=== PATIENT | female | born 1975 | race Caucasian/White ===

== ENCOUNTER 2022-01-24 19:08 | Emergency (ER) | payer OTHER ==
[2022-01-24] VITALS (9 sets, daily range): BP systolic 109–155; BP diastolic 63–105
[2022-01-24 21:01] LABS: HEMATOCRIT 42.4 % (37.0-47.0); HEMOGLOBIN 14.4 g/dl (12.0-16.0); IMMATURE GRANULOCYTES 0.4 % (0.0-5.0); MEAN CORPUSCULAR HGB 29.9 pG CALC (26.0-32.0); NEUT# 5.49 thou/uL (2.00-7.15); RED BLOOD COUNT 4.82 mill/uL (4.20-5.60); RED CELL DISTRI WIDTH 12.9 % (11.5-15.5)
[2022-01-24 21:18] LABS: ALBUMIN 4.4 g/dL (3.2-5.0); ALKALINE PHOSPHATASE 102 u/l (38-126); ANION GAP 14 (6-22 (CALC)); BILIRUBIN, TOTAL 0.7 mg/dL (0.0-1.4); BUN 13 mg/dL (7-17); BUN/CREATININE RATIO 20 (12-20 (CALC)); CARBON DIOXIDE 24 mmol/l (22-30); CHLORIDE 105 mmol/l (95-108); CPK 64 u/l (30-165); CREATININE 0.7 mg/dL (0.5-1.0); GFR > 60 ML/MIN (>=60 (CALC)); GFR FOR AFR.AMER. > 60 ML/MIN (>=60 (CALC)); POTASSIUM 3.5 mmol/l (3.5-5.1); SGOT/AST 32 u/l (14-36); SODIUM 139 mmol/l (137-146); TOTAL PROTEIN 7.5 g/dL (6.3-8.2)
[2022-01-24 22:44] LABS: URINE BILIRUBIN - DIPSTICK NEGATIVE (NEGATIVE); URINE BLOOD DIPSTICK LARGE (NEGATIVE); URINE COLOR YELLOW; URINE GLUCOSE - DIPSTICK NEGATIVE (NEGATIVE); URINE KETONE 40 mg/dL (NEGATIVE); URINE LEUK ESTERASE NEGATIVE (NEGATIVE); URINE PROTEIN - DIPSTICK NEGATIVE (NEG-TRACE); URINE UROBILINOGEN - DIPSTICK 0.2 E.U./dL (0.2)
[2022-01-24 22:49] LABS: URINE NITRITE - DIPSTICK POSITIVE (Negative)
[2022-01-24 22:53] LABS: URINE BACTERIA FEW hpf; URINE SQUAMOUS EPITHELIAL CELL FEW EPI/hpf (0-FEW)
[2022-01-24] MEDS ORDERED: PAXLOVID PO (23:03)
[2022-01-24] MEDS ORDERED: PHENERGAN25 MG RE (23:20)
== END 2022-01-24 23:29 | disposition home or self-care (01) | DRG 179 ==
LOC: ED 19:08
PROVIDERS: Family Medicine
DX: U07.1 COVID-19 (principal); R50.9 Fever, unspecified; R05.9 Cough, unspecified; R09.89 Other specified symptoms and signs involving the circulatory and respiratory systems; R52 Pain, unspecified; R82.71 Bacteriuria

== ENCOUNTER 2023-09-06 09:09 | Emergency (ER) | payer OTHER ==
[~2023-09-06] VITALS: Ht 165.1 cm; Wt 81.6 kg
[~2023-09-06 09:09] MED LIST: PAXLOVID PO; PHENERGAN25 MG RE
[2023-09-06 09:54] LABS: BASO% 0.2 % (0-3); EOS% 0.2 % (0-8); HEMATOCRIT 46.8 % (37.0-47.0); HEMOGLOBIN 15.9 g/dl (12.0-16.0); IMMATURE GRANULOCYTES 0.1 % (0.0-5.0); LYMPH% 25.6 % (15-41); MEAN CORPUSCULAR HGB 30.2 pG CALC (26.0-32.0); MONO% 7.9 % (2-13); NEUT# 7.81 thou/uL (2.00-7.15); RED BLOOD COUNT 5.26 mill/uL (4.20-5.60); RED CELL DISTRI WIDTH 15.2 % (11.5-15.5)
[2023-09-06 10:05] LABS: ALBUMIN 4.7 g/dL (3.2-5.0); ALKALINE PHOSPHATASE 139 u/l (38-126); ANION GAP 24 (6-22 (CALC)); BILIRUBIN, TOTAL 1.3 mg/dL (0.02-1.3); BUN 4 mg/dL (7-17); BUN/CREATININE RATIO 7 (12-20 (CALC)); CARBON DIOXIDE 22 mmol/l (22-30); CHLORIDE 102 mmol/l (95-108); CREATININE 0.6 mg/dL (0.5-1.0); GFR FOR AFR.AMER. > 60 ML/MIN (>=60 (CALC)); GFR OTHER RACES > 60 ML/MIN (>=60 (CALC)); POTASSIUM 4.3 mmol/l (3.5-5.1); SGOT/AST 35 u/l (14-36); SODIUM 144 mmol/l (137-146); TOTAL PROTEIN 7.2 g/dL (6.3-8.2)
[2023-09-06] MEDS ORDERED: PHENERGAN25 MG RE (12:06)
[2023-09-06 12:30] VITALS: BP 114/62
[2023-09-06 12:45] VITALS: BP 112/59
[2023-09-06 13:00] VITALS: BP 115/65
[2023-09-06 13:16] VITALS: BP 105/60
[2023-09-06 13:20] VITALS: BP 105/60
== END 2023-09-06 13:29 | disposition home or self-care (01) | DRG 153 ==
LOC: ED 09:09
PROVIDERS: Family Medicine
DX: J06.9 Acute upper respiratory infection, unspecified (principal); E86.0 Dehydration; E66.9 Obesity, unspecified; Z98.84 Bariatric surgery status; Z20.822 Contact with and (suspected) exposure to COVID-19
CPT/HCPCS: J0131

== ENCOUNTER 2023-10-05 14:39 | Emergency (ER) | payer OTHER ==
[~2023-10-05] VITALS: Ht 165.1 cm; Wt 73.0 kg
[2023-10-05] VITALS (9 sets, daily range): BP systolic 91–123; BP diastolic 51–81
[2023-10-05 15:58] LABS: BASO% 0.3 % (0-3); EOS% 0.3 % (0-8); HEMATOCRIT 50.6 % (37.0-47.0); IMMATURE GRANULOCYTES 0.1 % (0.0-5.0); LYMPH% 30.2 % (15-41); MEAN CORPUSCULAR HGB 29.4 pG CALC (26.0-32.0); MEAN CORPUSCULAR HGB CONC 35.4 g/dL CAL (32.0-36.0); MONO% 8.6 % (2-13); NEUT# 4.14 thou/uL (2.00-7.15); NEUT% 60.5 % (42-76); RED BLOOD COUNT 6.08 mill/uL (4.20-5.60); RED CELL DISTRI WIDTH 16.1 % (11.5-15.5)
[2023-10-05 16:10] LABS: HEMOGLOBIN 17.9 g/dl (12.0-16.0); MEAN CELL VOLUME 83.2 fL CALC (80.0-100.0)
[2023-10-05 16:13] LABS: ALBUMIN 4.8 g/dL (3.2-5.0); ALKALINE PHOSPHATASE 119 u/l (38-126); BILIRUBIN, TOTAL 1.6 mg/dL (0.02-1.3); BUN 4 mg/dL (7-17); BUN/CREATININE RATIO 6 (12-20 (CALC)); CARBON DIOXIDE 19 mmol/l (22-30); CHLORIDE 99 mmol/l (95-108); CREATININE 0.6 mg/dL (0.5-1.0); GFR FOR AFR.AMER. > 60 ML/MIN (>=60 (CALC)); GFR OTHER RACES > 60 ML/MIN (>=60 (CALC)); MAGNESIUM 1.8 mg/dL (1.6-2.3); SGOT/AST 54 u/l (14-36); SODIUM 139 mmol/l (137-146); TOTAL PROTEIN 7.6 g/dL (6.3-8.2)
[2023-10-05 16:14] LABS: ANION GAP 24 (6-22 (CALC)); POTASSIUM 2.9 mmol/l (3.5-5.1)
== END 2023-10-05 20:00 | disposition home or self-care (01) | DRG 641 ==
LOC: ED 14:39
PROVIDERS: Nurse Practitioner
DX: E86.0 Dehydration (principal); K83.8 Other specified diseases of biliary tract; E87.6 Hypokalemia; I28.0 Arteriovenous fistula of pulmonary vessels; Z98.84 Bariatric surgery status

== ENCOUNTER 2023-10-08 12:01 | Inpatient (IN) | payer OTHER ==
[~2023-10-08] VITALS: Ht 162.6 cm; Wt 72.6 kg
[2023-10-08 12:41] VITALS: BP 136/79
[2023-10-08 13:17] LABS: ALBUMIN 4.4 g/dL (3.2-5.0); ALKALINE PHOSPHATASE 112 u/l (38-126); ANION GAP 21 (6-22 (CALC)); BILIRUBIN, TOTAL 1.7 mg/dL (0.02-1.3); BUN 2 mg/dL (7-17); BUN/CREATININE RATIO 3 (12-20 (CALC)); CARBON DIOXIDE 17 mmol/l (22-30); CHLORIDE 102 mmol/l (95-108); CREATININE 0.6 mg/dL (0.5-1.0); GFR FOR AFR.AMER. > 60 ML/MIN (>=60 (CALC)); GFR OTHER RACES > 60 ML/MIN (>=60 (CALC)); POTASSIUM 2.5 mmol/l (3.5-5.1); SGOT/AST 63 u/l (14-36); SODIUM 138 mmol/l (137-146)
[2023-10-08] MEDS ORDERED: HYDROmorphone HCL 2 MG/AMP IV PRN ×2 (14:05)
[2023-10-08] MEDS ORDERED: SODIUM CHLORIDE 0.9% 1,000 ML IV PRN (14:05)
[2023-10-08] MEDS ORDERED: ONDANSETRON HCl 4 MG/2 ML SDV IV PRN (14:10)
[2023-10-08] MEDS ORDERED: POTASSIUM CHLORIDE 20MEQ 100 ML IV SCH (14:30)
[2023-10-08] MEDS ORDERED: PIPERACILLIN Sodium-Tazobactam 3.375 GM in SODIUM CHLORIDE 0.9% 100 ML IV SCH (18:00)
[2023-10-08] MEDS ORDERED: KETOROLAC TROMETHAMINE 15 MG/ML SDV IV SCH (18:00)
[2023-10-08 19:24] VITALS: BP 114/68
[2023-10-09] VITALS (11 sets, daily range): BP systolic 106–150; BP diastolic 56–83
[2023-10-09 05:55] LABS: ANION GAP 16 (6-22 (CALC)); CARBON DIOXIDE 17 mmol/l (22-30); CHLORIDE 107 mmol/l (95-108); CREATININE 0.5 mg/dL (0.5-1.0); GFR FOR AFR.AMER. > 60 ML/MIN (>=60 (CALC)); GFR OTHER RACES > 60 ML/MIN (>=60 (CALC)); SODIUM 137 mmol/l (137-146)
[2023-10-09 06:06] LABS: BUN 2 mg/dL (7-17); BUN/CREATININE RATIO 4 (12-20 (CALC)); POTASSIUM 3.3 mmol/l (3.5-5.1)
[2023-10-09] MEDS ORDERED: LIDOcaine HCl 1% (Local Anesth.) 20 ML VIAL ONE (07:25)
[2023-10-09] MEDS ORDERED: STERILE WATER FOR IRRIGATION 1,000 ML BTL IR ONE (07:26)
[2023-10-09] MEDS ORDERED: SODIUM CHLORIDE 1,000 ML BTL IR ONE (07:26)
[2023-10-09] MEDS ORDERED: GLUCAGON HCL (Rdna) 1 MG VIAL ONE (07:27)
[2023-10-09] MEDS ORDERED: Iopamidol 300 (Isovue) 61% 100ML SDV IV ONE (07:27)
[2023-10-09] MEDS ORDERED: DEXTROSE 5% w/NACL 0.45 1,000 ML IV PRN (07:35)
[2023-10-09] MEDS ORDERED: POTASSIUM CHLORIDE 20MEQ 100 ML IV SCH (08:00)
[2023-10-09] MEDS ORDERED: SUGAMMADEX SODIUM 200 MG/2 ML SDV IV ONE (08:52)
[2023-10-09] MEDS ORDERED: ONDANSETRON HCl 4 MG/2 ML SDV IV ONE (08:52)
[2023-10-09] MEDS ORDERED: KETOROLAC TROMETHAMINE 30 MG/ML SDV IV ONE (08:52)
[2023-10-09] MEDS ORDERED: PROPOFOL 200 MG/20 ML VIAL IV ONE (08:52)
[2023-10-09] MEDS ORDERED: ROCURONIUM BROMIDE 10 MG/ML 5ML VIAL IV ONE (08:52)
[2023-10-09] MEDS ORDERED: ESMOLOL HCL 10 MG/ML VIAL IV ONE (08:52)
[2023-10-09] MEDS ORDERED: SUCCINYLCHOLINE CHLORIDE 20 MG/ML 10ML VIAL IV ONE (08:52)
[2023-10-09] MEDS ORDERED: LIDOCAINE HCL 2% 2ML SDV IV ONE (08:52)
[2023-10-09] MEDS ORDERED: ALBUTEROL SULFATE 8 GM INH IN ONE (08:52)
[2023-10-09] MEDS ORDERED: SODIUM CHLORIDE 0.9% 1,000 ML BAG IV ONE (08:52)
[2023-10-09] MEDS ORDERED: FAMOTIDINE 10MG/ML 2ML SDV IV ONE (10:12)
[2023-10-09] MEDS ORDERED: ACETAMINOPHEN 100 ML IV ONE (12:06)
[2023-10-09] MEDS ORDERED: oxyCODONE 5MG/ ACETAMINOPHEN 325MG TAB PO PRN (12:20)
[2023-10-09] MEDS ORDERED: HYDROmorphone HCL 2 MG/AMP ONE (14:12)
[2023-10-09] MEDS ORDERED: ONDANSETRON HCl 4 MG/2 ML SDV ONE (14:12)
[2023-10-10 04:46] VITALS: BP 124/75
[2023-10-10 06:31] LABS: ALKALINE PHOSPHATASE 110 u/l (38-126); ANION GAP 12 (6-22 (CALC)); BILIRUBIN, TOTAL 1.7 mg/dL (0.02-1.3); CARBON DIOXIDE 16 mmol/l (22-30); CHLORIDE 106 mmol/l (95-108); CREATININE 0.4 mg/dL (0.5-1.0); GFR FOR AFR.AMER. > 60 ML/MIN (>=60 (CALC)); GFR OTHER RACES > 60 ML/MIN (>=60 (CALC)); POTASSIUM 3.3 mmol/l (3.5-5.1); SODIUM 131 mmol/l (137-146); TOTAL PROTEIN 5.8 g/dL (6.3-8.2)
[2023-10-10 06:35] LABS: ALBUMIN 3.4 g/dL (3.2-5.0); BUN 2 mg/dL (7-17); BUN/CREATININE RATIO 5 (12-20 (CALC)); SGOT/AST 141 u/l (14-36)
[2023-10-10 07:07] VITALS: BP 143/98
[2023-10-10 08:19] VITALS: BP 143/98
[2023-10-10] MEDS ORDERED: PROMETHAZINE HCL 25 MG/ML AMP IV PRN (08:50)
[2023-10-10] MEDS ORDERED: Pantoprazole Sodium 40 MG VIAL (Protonix) IV SCH (10:00)
[2023-10-10] MEDS ORDERED: POTASSIUM CHLORIDE 20MEQ 100 ML IV SCH (10:30)
[2023-10-10 17:06] VITALS: BP 135/76
[2023-10-10] MEDS ORDERED: KETOROLAC TROMETHAMINE 15 MG/ML SDV IV SCH (18:27)
[2023-10-10 19:30] VITALS: BP 111/48
[2023-10-11 04:38] VITALS: BP 136/74
[2023-10-11 06:46] VITALS: BP 113/59
[2023-10-11 08:50] LABS: ALBUMIN 3.1 g/dL (3.2-5.0); ALKALINE PHOSPHATASE 120 u/l (38-126); BILIRUBIN, TOTAL 1.8 mg/dL (0.02-1.3); CHLORIDE 103 mmol/l (95-108); CREATININE 0.4 mg/dL (0.5-1.0); GFR FOR AFR.AMER. > 60 ML/MIN (>=60 (CALC)); GFR OTHER RACES > 60 ML/MIN (>=60 (CALC)); SGOT/AST 83 u/l (14-36); SODIUM 136 mmol/l (137-146); TOTAL PROTEIN 5.1 g/dL (6.3-8.2)
[2023-10-11 08:54] LABS: BUN < 2 mg/dL (7-17); BUN/CREATININE RATIO 5 (12-20 (CALC))
[2023-10-11 08:56] LABS: ANION GAP 9 (6-22 (CALC)); CARBON DIOXIDE 26 mmol/l (22-30); POTASSIUM 2.1 mmol/l (3.5-5.1)
[2023-10-11 10:10] VITALS: BP 98/43
[2023-10-11] MEDS ORDERED: POTASSIUM CHLORIDE 20MEQ 100 ML IV SCH (10:30)
[2023-10-11] MEDS ORDERED: MAGNESIUM SULFATE HEPTAHYDRATE 100 ML IV SCH (11:30)
[2023-10-11] MEDS ORDERED: POTASSIUM CHLORIDE 20 MEQ/PKT POWDER PO SCH (13:00)
[2023-10-11 14:03] VITALS: BP 115/68
[2023-10-11 18:18] VITALS: BP 110/54
[2023-10-11] MEDS ORDERED: METOPROLOL TARTRATE 5 MG/5 ML VIAL IV SCH (18:40)
[2023-10-11] MEDS ORDERED: ENOXAPARIN SODIUM 80 MG/0.8 ML SYR SC SCH (18:55)
[2023-10-11] MEDS ORDERED: PIPERACILLIN Sodium-Tazobactam 3.375 GM in SODIUM CHLORIDE 0.9% 100 ML IV SCH ×2 (18:55→21:00)
[2023-10-11 19:10] VITALS: BP 113/71
[2023-10-11 19:42] LABS: BASO% 0.2 % (0-3); EOS% 0.6 % (0-8); HEMATOCRIT 45.3 % (37.0-47.0); IMMATURE GRANULOCYTES 0.2 % (0.0-5.0); LYMPH% 20.4 % (15-41); MEAN CELL VOLUME 84.8 fL CALC (80.0-100.0); MEAN CORPUSCULAR HGB 29.4 pG CALC (26.0-32.0); MEAN CORPUSCULAR HGB CONC 34.7 g/dL CAL (32.0-36.0); MONO% 8.2 % (2-13); NEUT# 3.27 thou/uL (2.00-7.15); NEUT% 70.4 % (42-76); RED BLOOD COUNT 5.34 mill/uL (4.20-5.60); RED CELL DISTRI WIDTH 15.7 % (11.5-15.5)
[2023-10-11 19:45] LABS: HEMOGLOBIN 15.7 g/dl (12.0-16.0)
[2023-10-11 20:08] LABS: ALBUMIN 3.1 g/dL (3.2-5.0); ALKALINE PHOSPHATASE 134 u/l (38-126); ANION GAP 9 (6-22 (CALC)); BILIRUBIN, TOTAL 1.7 mg/dL (0.02-1.3); CARBON DIOXIDE 24 mmol/l (22-30); CHLORIDE 106 mmol/l (95-108); CREATININE 0.5 mg/dL (0.5-1.0); GFR FOR AFR.AMER. > 60 ML/MIN (>=60 (CALC)); GFR OTHER RACES > 60 ML/MIN (>=60 (CALC)); POTASSIUM 2.9 mmol/l (3.5-5.1); SGOT/AST 119 u/l (14-36); SODIUM 136 mmol/l (137-146); TOTAL PROTEIN 5.2 g/dL (6.3-8.2)
[2023-10-11 20:11] LABS: BUN < 2 mg/dL (7-17); BUN/CREATININE RATIO 4 (12-20 (CALC)); MAGNESIUM 2.2 mg/dL (1.6-2.3)
[2023-10-12] VITALS (9 sets, daily range): BP systolic 103–128; BP diastolic 53–72
[2023-10-12 07:19] LABS: ALBUMIN 2.5 g/dL (3.2-5.0); ALKALINE PHOSPHATASE 112 u/l (38-126); ANION GAP 8 (6-22 (CALC)); BILIRUBIN, TOTAL 1.9 mg/dL (0.02-1.3); CARBON DIOXIDE 24 mmol/l (22-30); CHLORIDE 105 mmol/l (95-108); CREATININE 0.4 mg/dL (0.5-1.0); GFR FOR AFR.AMER. > 60 ML/MIN (>=60 (CALC)); GFR OTHER RACES > 60 ML/MIN (>=60 (CALC)); MAGNESIUM 1.8 mg/dL (1.6-2.3); POTASSIUM 2.6 mmol/l (3.5-5.1); SGOT/AST 161 u/l (14-36); SODIUM 135 mmol/l (137-146); TOTAL PROTEIN 4.6 g/dL (6.3-8.2)
[2023-10-12 07:26] LABS: BUN < 2 mg/dL (7-17)
[2023-10-12 07:27] LABS: BASO% 0.3 % (0-3); EOS% 1.5 % (0-8); HEMATOCRIT 39.8 % (37.0-47.0); HEMOGLOBIN 13.8 g/dl (12.0-16.0); IMMATURE GRANULOCYTES 0.3 % (0.0-5.0); LYMPH% 41.9 % (15-41); MEAN CORPUSCULAR HGB 29.5 pG CALC (26.0-32.0); MEAN CORPUSCULAR HGB CONC 34.7 g/dL CAL (32.0-36.0); MONO% 9.4 % (2-13); NEUT# 1.53 thou/uL (2.00-7.15); NEUT% 46.6 % (42-76); RED BLOOD COUNT 4.68 mill/uL (4.20-5.60)
[2023-10-12] MEDS ORDERED: POTASSIUM CHLORIDE 20 MEQ/TAB PO SCH (10:00)
[2023-10-12] MEDS ORDERED: POTASSIUM CHLORIDE 20MEQ 100 ML IV SCH (10:30)
[2023-10-12] MEDS ORDERED: SUCRALFATE 1 GM/10 ML SUS PO SCH (11:00)
[2023-10-12] MEDS ORDERED: DEXAMETHASONE SOD. PHOSPHATE 10 MG/ML VIAL IV SCH (17:20)
[2023-10-12] MEDS ORDERED: ENOXAPARIN SODIUM 40 MG/0.4 ML SYR SC SCH (21:00)
[2023-10-13 03:38] VITALS: BP 118/65
[2023-10-13 04:00] VITALS: BP 118/65
[2023-10-13 05:03] LABS: BASO% 0.3 % (0-3); EOS% 2.3 % (0-8); HEMATOCRIT 35.3 % (37.0-47.0); HEMOGLOBIN 12.3 g/dl (12.0-16.0); IMMATURE GRANULOCYTES 0.3 % (0.0-5.0); LYMPH% 51.1 % (15-41); MEAN CELL VOLUME 85.7 fL CALC (80.0-100.0); MEAN CORPUSCULAR HGB 29.9 pG CALC (26.0-32.0); MEAN CORPUSCULAR HGB CONC 34.8 g/dL CAL (32.0-36.0); MONO% 7.8 % (2-13); NEUT# 1.33 thou/uL (2.00-7.15); NEUT% 38.2 % (42-76); RED BLOOD COUNT 4.12 mill/uL (4.20-5.60); RED CELL DISTRI WIDTH 16.1 % (11.5-15.5)
[2023-10-13 05:30] LABS: ALBUMIN 2.2 g/dL (3.2-5.0); ALKALINE PHOSPHATASE 96 u/l (38-126); CHLORIDE 104 mmol/l (95-108); CREATININE 0.4 mg/dL (0.5-1.0); GFR FOR AFR.AMER. > 60 ML/MIN (>=60 (CALC)); GFR OTHER RACES > 60 ML/MIN (>=60 (CALC)); MAGNESIUM 1.6 mg/dL (1.6-2.3); SGOT/AST 135 u/l (14-36)
[2023-10-13 05:48] LABS: BUN < 2 mg/dL (7-17); BUN/CREATININE RATIO 5 (12-20 (CALC))
[2023-10-13 05:49] LABS: ANION GAP 3 (6-22 (CALC)); BILIRUBIN, TOTAL 0.9 mg/dL (0.02-1.3); CARBON DIOXIDE 31 mmol/l (22-30); POTASSIUM 2.4 mmol/l (3.5-5.1); SODIUM 136 mmol/l (137-146)
[2023-10-13 06:49] VITALS: BP 107/50
[2023-10-13] MEDS ORDERED: MAGNESIUM SULFATE HEPTAHYDRATE 50 ML IV SCH (08:00)
[2023-10-13] MEDS ORDERED: POTASSIUM CHLORIDE 20MEQ 100 ML IV SCH (08:00)
[2023-10-13] MEDS ORDERED: PANTOPRAZOLE SODIUM Sesquihydr 40 MG/TAB PO SCH (09:00)
[2023-10-13] MEDS ORDERED: KETOROLAC TROMETHAMINE 15 MG/ML SDV IV PRN (09:40)
[2023-10-13] MEDS ORDERED: Pantoprazole Sodium 40 MG VIAL (Protonix) IV SCH (14:00)
[2023-10-13 19:35] VITALS: BP 123/72
[2023-10-13] MEDS ORDERED: D5 1/2 NaCL W/KCL 40MEQ 1,000 ML IV PRN (20:35)
[2023-10-13] MEDS ORDERED: POTASSIUM CHLORIDE 20 MEQ/TAB PO SCH (21:00)
[2023-10-13 23:47] VITALS: BP 106/55
[2023-10-14] VITALS (7 sets, daily range): BP systolic 100–112; BP diastolic 44–59
[2023-10-14 06:12] LABS: URINE BILIRUBIN - DIPSTICK Negative (NEGATIVE); URINE BLOOD DIPSTICK Trace-intact (NEGATIVE); URINE CLARITY Clear; URINE GLUCOSE - DIPSTICK Negative (NEGATIVE); URINE KETONE Negative (NEGATIVE); URINE LEUK ESTERASE Negative (Negative); URINE NITRITE - DIPSTICK Negative (Negative); URINE PROTEIN - DIPSTICK Negative (NEG-TRACE); URINE SPECIFIC GRAVITY 1.015
[2023-10-14 06:13] LABS: URINE COLOR Yellow
[2023-10-14 06:15] LABS: ALBUMIN 2.3 g/dL (3.2-5.0); ALKALINE PHOSPHATASE 88 u/l (38-126); ANION GAP 7 (6-22 (CALC)); CARBON DIOXIDE 27 mmol/l (22-30); CHLORIDE 107 mmol/l (95-108); CREATININE 0.4 mg/dL (0.5-1.0); GFR FOR AFR.AMER. > 60 ML/MIN (>=60 (CALC)); GFR OTHER RACES > 60 ML/MIN (>=60 (CALC)); MAGNESIUM 1.6 mg/dL (1.6-2.3); SGOT/AST 90 u/l (14-36); SODIUM 137 mmol/l (137-146); TOTAL PROTEIN 4.4 g/dL (6.3-8.2)
[2023-10-14 06:30] LABS: BASO% 0.2 % (0-3); EOS% 0.2 % (0-8); HEMATOCRIT 36.7 % (37.0-47.0); HEMOGLOBIN 12.4 g/dl (12.0-16.0); IMMATURE GRANULOCYTES 0.3 % (0.0-5.0); LYMPH% 23.5 % (15-41); MEAN CELL VOLUME 87.2 fL CALC (80.0-100.0); MEAN CORPUSCULAR HGB 29.5 pG CALC (26.0-32.0); MEAN CORPUSCULAR HGB CONC 33.8 g/dL CAL (32.0-36.0); MONO% 7.2 % (2-13); NEUT# 4.18 thou/uL (2.00-7.15); NEUT% 68.6 % (42-76); RED BLOOD COUNT 4.21 mill/uL (4.20-5.60); RED CELL DISTRI WIDTH 16.4 % (11.5-15.5)
[2023-10-14 06:32] LABS: BUN < 2 mg/dL (7-17); BUN/CREATININE RATIO 5 (12-20 (CALC)); POTASSIUM 3.6 mmol/l (3.5-5.1)
[2023-10-14] MEDS ORDERED: POTASSIUM CHLORIDE 20 MEQ/TAB PO SCH (09:00)
[2023-10-14] MEDS ORDERED: SPIRONOLACTONE 25 MG/TAB PO SCH (09:00)
[2023-10-14] MEDS ORDERED: POTASSIUM PHOSPHATE MONOBASIC PO SCH (09:00)
[2023-10-14] MEDS ORDERED: MAGNESIUM SULFATE HEPTAHYDRATE 100 ML IV SCH (09:00)
[2023-10-15] VITALS: BP 105/44
[2023-10-15 04:51] VITALS: BP 98/63
[2023-10-15 05:50] LABS: EOS% 0.2 % (0-8); HEMOGLOBIN 12.5 g/dl (12.0-16.0); IMMATURE GRANULOCYTES 0.2 % (0.0-5.0); LYMPH% 30.7 % (15-41); MEAN CELL VOLUME 89.2 fL CALC (80.0-100.0); MEAN CORPUSCULAR HGB 30.1 pG CALC (26.0-32.0); MEAN CORPUSCULAR HGB CONC 33.8 g/dL CAL (32.0-36.0); MONO% 6.9 % (2-13); NEUT# 3.49 thou/uL (2.00-7.15); RED BLOOD COUNT 4.15 mill/uL (4.20-5.60)
[2023-10-15 06:13] LABS: ALBUMIN 2.3 g/dL (3.2-5.0); ALKALINE PHOSPHATASE 93 u/l (38-126); ANION GAP 8 (6-22 (CALC)); BILIRUBIN, TOTAL 0.6 mg/dL (0.02-1.3); CARBON DIOXIDE 28 mmol/l (22-30); CHLORIDE 108 mmol/l (95-108); CREATININE 0.4 mg/dL (0.5-1.0); GFR FOR AFR.AMER. > 60 ML/MIN (>=60 (CALC)); GFR OTHER RACES > 60 ML/MIN (>=60 (CALC)); POTASSIUM 3.4 mmol/l (3.5-5.1); SGOT/AST 54 u/l (14-36); SODIUM 140 mmol/l (137-146); TOTAL PROTEIN 4.3 g/dL (6.3-8.2)
[2023-10-15 06:19] LABS: BUN < 2 mg/dL (7-17); BUN/CREATININE RATIO 5 (12-20 (CALC))
[2023-10-15 06:50] VITALS: BP 97/60
[2023-10-15 07:51] VITALS: BP 100/52
[2023-10-15 11:23] VITALS: BP 99/52
== END 2023-10-15 15:56 | disposition home or self-care (01) | DRG 417 ==
LOC: MS2 12:01
PROVIDERS: Internal Medicine Nephrology; Nurse Practitioner Family; Student in an Organized Health Care Education/Training Program; ADMIT Surgery; ATTEND Surgery
PROC: 0FT44ZZ Resection of Gallbladder, Percutaneous Endoscopic Approach (ICD-10-PCS; principal; 2023-10-09)
PROC: BF001ZZ Plain Radiography of Bile Ducts using Low Osmolar Contrast (ICD-10-PCS; 2023-10-09)
DX: K80.00 Calculus of gallbladder with acute cholecystitis without obstruction (principal); U07.1 COVID-19; E87.1 Hypo-osmolality and hyponatremia; E83.42 Hypomagnesemia; E87.6 Hypokalemia; E86.0 Dehydration; R00.0 Tachycardia, unspecified; E83.39 Other disorders of phosphorus metabolism; I10 Essential (primary) hypertension; Z98.84 Bariatric surgery status; Z87.442 Personal history of urinary calculi; T50.3X6A Underdosing of electrolytic, caloric and water-balance agents, initial encounter; Z91.128 Patient's intentional underdosing of medication regimen for other reason
CPT/HCPCS: J0131; J1610; J1650; J3475; Q9966; Q9967; S0164